=== PATIENT | male | born 1965 | race Caucasian/White ===

== ENCOUNTER 2018-12-26 20:30 | Outpatient (CLI) | payer BC | END 2018-12-26 20:31 | disposition home or self-care (01) | LOC: SLEEPLAB 20:30 | PROVIDERS: ATTEND Family Medicine | DX: G47.33 Obstructive sleep apnea (adult) (pediatric) (principal); R53.83 Other fatigue; K21.9 Gastro-esophageal reflux disease without esophagitis; R06.83 Snoring; R35.1 Nocturia; E11.9 Type 2 diabetes mellitus without complications; G47.00 Insomnia, unspecified; G47.10 Hypersomnia, unspecified; E66.9 Obesity, unspecified; Z68.39 Body mass index [BMI] 39.0-39.9, adult | CPT/HCPCS: 95811 ==

== ENCOUNTER 2020-02-22 12:12 | Observation (INO) | payer BC ==
--- NOTE | 2020-02-22 12:31 | CT ---
Exam: Head CT without contrast HISTORY: Level 1 stroke. Left arm numbness in general facial numbness, onset 20 minutes ago COMPARISON: none FINDINGS: Hemorrhage: No intraparenchymal hemorrhage or extra-axial hematoma. Brain parenchyma: Cortical martinez-white matter differentiation is preserved. No mass effect or midline shift. Basilar cisterns are patent. Ventricular system: Ventricles and sulci are patent and symmetric. Calvarium: Intact. Sinuses and mastoid air cells: Adequate aeration. Additional findings: Fluoroscopy was of the nasopharynx, incompletely evaluated. IMPRESSION: 1. No acute appearing process 2. Nasopharyngeal fullness. Direct visualization is recommended 3. Findings conveyed to Dr. Thorne 02/22/2020 12:28 PM Code CR
[2020-02-22 13:29] LABS: ALT (SGPT) 48 U/L (8-55); AST (SGOT) 35 U/L (5-34); Albumin 4.9 g/dL (3.5-5.0); Alkaline Phosphatase 53 U/L (40-110); Anion Gap 16 mmol/L (10-20); BUN (Urea Nitrogen) 16 mg/dL (8.4-25.7); Bilirubin, Total 0.3 mg/dL (0.2-1.2); Calc. Creatinine Clearance 0 mL/min (70-130); Calcium 10.4 mg/dL (7.8-10.44); Carbon Dioxide 24 mmol/L (22-29); Chloride 102 mmol/L (98-107); Estimated GFR-MDRD 69; Globulin 3.6 g/dL (2.4-3.5); Glucose 155 mg/dL (70-105); Potassium 4.1 mmol/L (3.5-5.1); Protein, Total 8.5 g/dL (6.0-8.3); Sodium 138 mmol/L (136-145)
[2020-02-22 13:35] LABS: #Eosinphils 0.1 thou/uL (0.0-0.7); #Lymphocytes 1.9 thou/uL (1.20-3.40); #Monocytes 0.3 thou/uL (0.11-0.59); #Neutrophils 3.2 thou/uL (1.40-6.50); %Basophils 0.7 % (0.0-1.0); %Eosinophils 0.9 % (0.0-10.0); %Lymphocytes 35.3 % (21.0-51.0); %Monocytes 5.3 % (0.0-10.0); %Neutrophils 57.7 % (42.0-75.0); Hemoglobin 14.9 g/dL (14.0-18.0); Mean Corpuscular HGB CONC 33.9 g/dL (32.0-36.0); Mean Corpuscular Hemoglobin 29.8 pg (27.0-31.0); Mean Corpuscular Volume 87.7 fL (78.0-98.0); Mean Platelet Volume 6.3 fL (7.4-10.4); Platelet Count 345 thou/uL (130-400); RBC Distribution Width 12.6 % (11.5-14.5); Red Blood Cell (RBC) Count 5.01 mill/uL (4.70-6.10); White Blood Cell (WBC) Count 5.5 thou/uL (4.8-10.8)
[2020-02-22 13:41] LABS: INR-International Normal Ratio 0.9; Prothrombin Time 12.4 sec (12.0-14.7)
[2020-02-22 13:46] LABS: PTT 25.6 sec (22.9-36.1)
[2020-02-22] MEDS ORDERED: Acetaminophen 325 MG TAB PO PRN (16:30)
[2020-02-22] MEDS ORDERED: Ondansetron ODT 4 MG TAB SL PRN (16:30)
[2020-02-22] MEDS ORDERED: Ondansetron PF 4 MG/2 ML Vial IVP PRN (16:30)
[2020-02-22] MEDS ORDERED: Dextrose 50% Abboject 50 ML SYRINGE SLOW IVP PRN (16:41)
[2020-02-22] MEDS ORDERED: HumaLOG 300 UNITS/3 ML VIAL SC PRN ×2 (16:41)
[2020-02-22] MEDS ORDERED: Dextrose 5% in Water 1,000 ML IV PRN (16:41)
[2020-02-22 16:42] VITALS: BMI 38.6
--- NOTE | 2020-02-22 16:57 | PDOC.HHP ---
Hospitalist HPI - History of Present Illness Left-sided facial numbness History of Present Illness: PCP: Sujata The patient is a 54-year-old male past medical history significant for hyperlipidemia and diabetes type 2. He presents to the ER today after an episode of having his lips and the left side of his face feel numb. He also states that his left arm felt like it was weight although he was still able to move it. The person he was talking to denies that his face had any droop or change to it. He also denies any change in his speech or swallowing. When this occurred his face became flushed and he was diaphoretic. He had his blood pressure checked at that time and it was 140 systolically which he states is high for him. He took 324 mg of aspirin prior to arrival in the ER. He denied any change in his gait, chest pain, abdominal pain, shortness of breath, changes in bowel or bladder habits, contact with sick persons, headache, associated stress. Patient does state that approximately 2 to 3 weeks ago a coworker noticed a left sided facial droop which quickly resolved so he did not seek medical treatment. Also the patient states that this past weekend he had a moment of confusion where he went into the bathroom to urinate and instead of using the toilet he urinated in the trash can. He denies any new medication use or alcohol use at that time. Patient states he has been compliant with his medications but that his recent A1c's have ranged from 7-10. ED Course: Today in the ER they completed a brain CT, EKG, lab work. No medications were administered in the ER as he had aspirin prior to arrival. In the ER his NIH was a 0. Hospitalist ROS - Review of Systems Neurological: reports: weakness (left arm heaviness), numbness (lips and left side of face) All other systems reviewed; all pertinent +/- noted in HPI/Subj - Medication Medications: NKDA Current Medications: metFORMIN ThuFeb 22, 2020 13:05 ZENA Castañeda, Gay TABLET : Strength - 500 mg : ORAL Patient Dose: Unknown. pantoprazole oral ThuFeb 22, 2020 13:05 ZENA Castañeda, Gay TABLET, DELAYED RELEASE (ENTERIC COATED) : Strength - 40 mg : ORAL Patient Dose: Unknown. fenofibrate ThuFeb 22, 2020 13:06 ZENA Castañeda, Gay tablet : Strength - 40 mg : ORAL Patient Dose: Unknown. Hospitalist History - Past Medical History Source: patient Cardiac: reports: Hyperlipidemia Pulmonary: reports: Other (sleep apnea on CPAP) Gastrointestinal: reports: GERD Endocrine: reports: Diabetes - Past Surgical History Other Surgical History: lithotripsy - Family History Family History: reports: no pertinent history - Social History Smoking Status: Never smoker Alcohol: reports: None Drugs: reports: none Living Situation: With Family Activity level: independent ambulation - Exam General Appearance: NAD, awake alert Eye: PERRL Neck: supple Heart: RRR, no murmur, no gallops, no rubs, normal peripheral pulses Respiratory: CTAB, no wheezes, no rales, no ronchi, normal chest expansion Gastrointestinal: soft, non-tender, non-distended, normal bowel sounds Extremities: no cyanosis, no edema Neurological: cranial nerve grossly intact, normal sensation to touch, no weakness, no focal deficits Musculoskeletal: normal tone, normal strength, no muscle wasting Psychiatric: normal affect, normal behavior, A&O x 3 Hospitalist Results - Labs Result Diagrams: 02/22/20 13:27 02/22/20 12:40 Lab results: WBC 5.5 thou/uL (4.8-10.8) 02/22/20 13:27 Hgb 14.9 g/dL (14.0-18.0) 02/22/20 13:27 Hct 43.9 % (42.0-52.0) 02/22/20 13:27 MCV 87.7 fL (78.0-98.0) 02/22/20 13:27 Plt Count 345 thou/uL (130-400) 02/22/20 13:27 Neutrophils % 57.7 % (42.0-75.0) 02/22/20 13:27 Sodium 138 mmol/L (136-145) 02/22/20 12:40 Potassium 4.1 mmol/L (3.5-5.1) 02/22/20 12:40 Chloride 102 mmol/L (98-107) 02/22/20 12:40 Carbon Dioxide 24 mmol/L (22-29) 02/22/20 12:40 BUN 16 mg/dL (8.4-25.7) 02/22/20 12:40 Creatinine 1.12 mg/dL (0.7-1.3) 02/22/20 12:40 Glucose 155 mg/dL (70-105) H 02/22/20 12:40 Calcium 10.4 mg/dL (7.8-10.44) 02/22/20 12:40 Total Bilirubin 0.3 mg/dL (0.2-1.2) 02/22/20 12:40 AST 35 U/L (5-34) H 02/22/20 12:40 ALT 48 U/L (8-55) 02/22/20 12:40 Alkaline Phosphatase 53 U/L (40-110) 02/22/20 12:40 Troponin I Less than 0.010 ng/mL (< 0.028) 02/22/20 12:40 Serum Total Protein 8.5 g/dL (6.0-8.3) H 02/22/20 12:40 Albumin 4.9 g/dL (3.5-5.0) 02/22/20 12:40 - EKG Interpretation EKG: SR 90 bpm - Radiology Interpretation CT scan - head Status: report reviewed by me Additional Comment: Exam: Head CT without contrast HISTORY: Level 1 stroke. Left arm numbness in general facial numbness, onset 20 minutes ago COMPARISON: none FINDINGS: Hemorrhage: No intraparenchymal hemorrhage or extra-axial hematoma. Brain parenchyma: Cortical martinez-white matter differentiation is preserved. No mass effect or midline shift. Basilar cisterns are patent. Ventricular system: Ventricles and sulci are patent and symmetric. Calvarium: Intact. Sinuses and mastoid air cells: Adequate aeration. Additional findings: Fluoroscopy was of the nasopharynx, incompletely evaluated. IMPRESSION: 1. No acute appearing process 2. Nasopharyngeal fullness. Direct visualization is recommended Hospitalist H&P A/P - Plan Plan: Possible TIA versus CVA Patient to be monitored on our stroke unit Aspirin to be started MRI in the morning Neurology consult Echopatient states last echo was approximately 3 years ago and was "normal" Dysphagia screening prior to eating Diabetes type 2 Monitor Accu-Cheks AC at bedtime Mild sliding scale insulin Hemoglobin A1c in the morning Hyperlipidemia FLP in a.m. Restart home medication Obstructive sleep apnea Nursing to arrange to have either home CPAP brought up to the hospital or have RT arrange the hospital's CPAP with his home settings VTE and GI prophylaxis in place CODE STATUS: Full Surrogate decision maker is his , Eva
[2020-02-22] MEDS: Sodium Chloride 0.9% 1,000 ML IV SCH (17:17)
[2020-02-22 17:29] LABS: Bacteria/HPF None Seen HPF (None Seen); Bilirubin Negative (Negative); Blood, Urine Negative (Negative); Clarity Clear (Clear); Glucose, Urine (Dipstick) Normal (Negative); Ketone, Urine Negative (Negative); Leukocyte Negative Leu/uL (Negative); Nitrite Negative (Negative); Protein, Urine (Dipstick) Negative (Neg-Trace); RBC/HPF 0-3 HPF (0-3); Specific Gravity, Urine 1.021 (1.002-1.036); Squamous Epithelial 0-3 HPF (0-3); Urobilinogen Normal mg/dL (Less than 2); WBC/HPF 0-3 HPF (0-3); pH, Urine 6.5 (5.0-9.0)
[2020-02-22 17:31] LABS: Urine Culture Reflex No No
[2020-02-22] MEDS ORDERED: Fenofibrate 48 MG TAB PO SCH (21:00)
[2020-02-23] MEDS: Sodium Chloride 0.9% 1,000 ML IV SCH (01:14)
[2020-02-23 05:17] LABS: Hemoglobin A1c 7.7 % (4.0-6.0)
[2020-02-23 05:19] LABS: #Eosinphils 0.1 thou/uL (0.0-0.7); #Lymphocytes 2.7 thou/uL (1.20-3.40); #Monocytes 0.4 thou/uL (0.11-0.59); #Neutrophils 3.6 thou/uL (1.40-6.50); %Basophils 0.1 % (0.0-1.0); %Eosinophils 1.8 % (0.0-10.0); %Lymphocytes 39.2 % (21.0-51.0); %Monocytes 6.2 % (0.0-10.0); %Neutrophils 52.7 % (42.0-75.0); Hemoglobin 13.9 g/dL (14.0-18.0); Mean Corpuscular HGB CONC 34.5 g/dL (32.0-36.0); Mean Corpuscular Hemoglobin 30.2 pg (27.0-31.0); Mean Corpuscular Volume 87.7 fL (78.0-98.0); Mean Platelet Volume 6.5 fL (7.4-10.4); Platelet Count 315 thou/uL (130-400); RBC Distribution Width 12.5 % (11.5-14.5); Red Blood Cell (RBC) Count 4.58 mill/uL (4.70-6.10); White Blood Cell (WBC) Count 6.9 thou/uL (4.8-10.8)
[2020-02-23 05:40] LABS: Anion Gap 13 mmol/L (10-20); BUN (Urea Nitrogen) 18 mg/dL (8.4-25.7); Calc. Creatinine Clearance 166 mL/min (70-130); Calcium 9.3 mg/dL (7.8-10.44); Carbon Dioxide 25 mmol/L (22-29); Cardiac Risk 5.9 (Less than 4.5); Chloride 104 mmol/L (98-107); Cholesterol 154 mg/dl (< 200 Desired); Estimated GFR-MDRD 83; Glucose 149 mg/dL (70-105); HDL Cholesterol 26 mg/dL (>60 Neg Risk); LDL Cholesterol, Calculated 62 mg/dL; Potassium 3.8 mmol/L (3.5-5.1); Sodium 138 mmol/L (136-145); Triglycerides 328 mg/dL (Less than 150)
[2020-02-23] MEDS ORDERED: Pantoprazole 40 MG GRANULES PACKET PO SCH (09:00)
[2020-02-23] MEDS ORDERED: Tamsulosin HCl 0.4 MG CAP PO SCH (09:00)
[2020-02-23] MEDS ORDERED: FLU VACC QS2020-21(6MOS UP)/PF 60 MCG/0.5 ML SYRINGE IM ONE (09:00)
[2020-02-23] MEDS ORDERED: Aspirin 81 mg Enteric Coated Tablet PO SCH (09:00)
--- NOTE | 2020-02-23 12:31 | MRI ---
MRI of thebrain: 02/23/2020 COMPARISON:None available HISTORY:TIA versus stroke, left arm weakness TECHNIQUE: Multiplanar multisequence MR imaging of thebrain without contrast Findings:The diffusion weighted imaging demonstrates no evidence for acute infarction. The axial grad ient echo imaging demonstrates no evidence for intracranial hemorrhage. The regional bone marrow signal intensity appears within normal limits on the sagittal T1-weighted imaging. Arterial flow voids at the axial level of the skull base appear grossly unremarkable on the T2-weight ed imaging. The paranasal sinuses and mastoid air cells appear grossly unremarkable. No midline shift or mass effect. No ventricular enlargement. IMPRESSION:No evidence for acute infarction or intracranial hemorrhage.
--- NOTE | 2020-02-23 13:03 | CON ---
NEUROLOGY CONSULTATION DATE OF CONSULTATION: 02/23/2020 REASON FOR CONSULTATION: Left-sided facial paresthesias and facial droop. HISTORY OF PRESENT ILLNESS: Mr. Hamm is a 54-year-old male with medical history significant for hyperlipidemia and diabetes, presented to the emergency room on 02/22/2020 with an episode of left facial paresthesias. His arm also felt heavy and he was unable to move it for some time. The coworkers have also noticed the left facial droop. He decided to come to the emergency room for further evaluation. His symptoms resolved. He also had an episode of left facial droop approximately 2 to 3 weeks ago noticed by a coworker, which resolved on its own and he did not seek medical help. The symptoms persisted this time and his face was flushed and he was diaphoretic, so he decided to come to the emergency room for further evaluation. In the emergency room, he was given aspirin and CT scan was done, which was negative for acute intracranial pathology. EKG showed normal sinus rhythm. In the emergency room, his NIH score was zero. The patient also recalls he had an episode past weekend of confusion when he instead of going to the restroom, he urinated in a trash can. The patient at this time denies any focal numbness, focal paresthesias, nausea, vomiting, headache, chest pain, abdominal pain, problems with speech or swallowing, blurred vision, dizziness, vertigo, or loss of vision or loss of consciousness or involuntary abnormal movements associated with the episode. REVIEW OF SYSTEMS: All 14 systems were reviewed and were negative except the pertinent positives and negatives mentioned in the HPI. ALLERGIES: NO KNOWN DRUG ALLERGIES. CURRENT MEDICATIONS: 1. Metformin 500 mg twice daily. 2. Fenofibrate 40 mg daily. PAST MEDICAL HISTORY: Hyperlipidemia; sleep apnea, on CPAP; gastroesophageal reflux disease; diabetes. PAST SURGICAL HISTORY: Lithotripsy. FAMILY HISTORY: No family history of stroke. SOCIAL HISTORY: The patient lives with family and denies smoking, alcohol, or illegal drug use. PHYSICAL EXAMINATION: VITAL SIGNS: Blood pressure 140/80 pulse 80, respiratory rate 18. General Appearance: NAD, awake alert Eye: PERRL Neck: supple Heart: RRR, no murmur, no gallops, no rubs, normal peripheral pulses Respiratory: CTAB, no wheezes, no rales, no ronchi, normal chest expansion Gastrointestinal: soft, non-tender, non-distended, normal bowel sounds Extremities: no cyanosis, no edema Neurological: Mental status, the patient is alert and oriented to person, place, and time. Recent and remote memory, intact. Speech is clear. Fund of knowledge is appropriate. Motor, muscle tone and bulk are normal. Strength 5/5 bilaterally. Sensory intact. Cerebellar, finger-nose testing intact. Cranial nerves 2 through 12 intact. Gait deferred due to the patient's safety reason. DATA REVIEWED: I reviewed the labs, which was essentially unremarkable except hyperglycemia of 155. EKG shows normal sinus rhythm and a CT scan of the head reviewed, which did not reveal any acute intracranial pathology. Lab results: WBC 5.5 thou/uL (4.8-10.8) 02/22/20 13:27 Hgb 14.9 g/dL (14.0-18.0) 02/22/20 13:27 Hct 43.9 % (42.0-52.0) 02/22/20 13:27 MCV 87.7 fL (78.0-98.0) 02/22/20 13:27 Plt Count 345 thou/uL (130-400) 02/22/20 13:27 Neutrophils % 57.7 % (42.0-75.0) 02/22/20 13:27 Sodium 138 mmol/L (136-145) 02/22/20 12:40 Potassium 4.1 mmol/L (3.5-5.1) 02/22/20 12:40 Chloride 102 mmol/L (98-107) 02/22/20 12:40 Carbon Dioxide 24 mmol/L (22-29) 02/22/20 12:40 BUN 16 mg/dL (8.4-25.7) 02/22/20 12:40 Creatinine 1.12 mg/dL (0.7-1.3) 02/22/20 12:40 Glucose 155 mg/dL (70-105) H 02/22/20 12:40 Calcium 10.4 mg/dL (7.8-10.44) 02/22/20 12:40 Total Bilirubin 0.3 mg/dL (0.2-1.2) 02/22/20 12:40 AST 35 U/L (5-34) H 02/22/20 12:40 ALT 48 U/L (8-55) 02/22/20 12:40 Alkaline Phosphatase 53 U/L (40-110) 02/22/20 12:40 Troponin I Less than 0.010 ng/mL (< 0.028) 02/22/20 12:40 Serum Total Protein 8.5 g/dL (6.0-8.3) H 02/22/20 12:40 Albumin 4.9 g/dL (3.5-5.0) 02/22/20 12:40 - EKG Interpretation EKG: SR 90 bpm - Radiology Interpretation CT scan - head Status: report reviewed by me Additional Comment: Exam: Head CT without contrast HISTORY: Level 1 stroke. Left arm numbness in general facial numbness, onset 20 minutes ago COMPARISON: none FINDINGS: Hemorrhage: No intraparenchymal hemorrhage or extra-axial hematoma. Brain parenchyma: Cortical martinez-white matter differentiation is preserved. No mass effect or midline shift. Basilar cisterns are patent. Ventricular system: Ventricles and sulci are patent and symmetric. Calvarium: Intact. Sinuses and mastoid air cells: Adequate aeration. Additional findings: Fluoroscopy was of the nasopharynx, incompletely evaluated. IMPRESSION: 1. No acute appearing process 2. Nasopharyngeal fullness. Direct visualization is recommended ASSESSMENT AND PLAN: Mr. Carlos Eduardo Hamm is a 54-year-old male, who was admitted for an episode of left facial paresthesias and left arm heaviness, which resolved on its own in 20 minutes, most likely transient ischemic attack and consider MRI of the brain to rule out acute intracranial process. He also needs 2D echocardiogram to evaluate for left ventricular ejection fraction, carotid Dopplers, and telemetry to rule out arrhythmias. Permissive control of blood pressure at this time. Strict control of blood glucose. Check hemoglobin A1c, fasting lipid panel, and TSH. Neuro checks every 4 hours. Continue home medications. EEG to evaluate for an episode of confusion, which happened past weekend. PT/OT/Speech. Continue medical management per primary team. Start aspirin and high-intensity statin for secondary stroke prevention. We will continue to follow. Thank you for the consult. Job ID: [id number] MTDD
--- NOTE | 2020-02-23 13:47 | PDOC.EEG ---
Neurology EEG Report - Report Report: This EEG was performed using 24 channel [employer] video digital EEG machine with 24 disc electrodes. This was an extended 2-hour 4 minutes of inpatient video EEG recording. Initial analysis of the EEG was done for Hardik and seizure detection which revealed no abnormalities. Background: The posterior background rhythm was 8.5 to 9 Hz. The background rhythm attenuates with eye opening and enhances with eye closure. Hyperventilation: Not performed Photic stimulation: Bioccipital symmetric driving response is observed. Sleep: Drowsiness and sleep are observed EEG diagnosis: Normal awake, drowsy and sleep EEG.
--- NOTE | 2020-02-23 14:04 | ULT ---
CAROTID DOPPLER: 02/23/20 Ultrasound Doppler study is performed of the extracranial carotid arteries. Color Doppler with spectr al analysis and velocity recordings obtained. INDICATIONS: TIA. FINDINGS: Ultrasound images show no significant echogenic plaque or intimal thickening. Velocity recordings are normal bilaterally. Vertebral arteries are antegrade. IMPRESSION: 1. No significant echogenic plaque by ultrasound. 2. No evidence of stenosis identified by Doppler velocity. POS: AGW
[2020-02-23 15:18] VITALS: BP 129/84; TEMP 97.5
--- NOTE | 2020-02-23 19:56 | DIS ---
DATE OF ADMISSION: 02/22/2020 DATE OF DISCHARGE: 02/23/2020 DISCHARGE DISPOSITION AND FOLLOWUP: The patient discharged home with . The patient was seen and examined on the day of discharge. Denies any new complaints. INPATIENT CONSULT: Neurology. BRIEF CLINICAL COURSE: The patient is a 54-year-old male with past medical history significant for hyperlipidemia and diabetes type 2. He presented to the ER after an episode of his lips and left side of his face feeling numb. He also felt that his arm was "deadweight". His symptoms resolved while he was on the CT scan table in the ER. While he was in the hospital he completed a brain CT, which showed no acute appearing process. He also had a brain MRI, which showed no evidence for acute infarction or intracranial hemorrhage. Carotid Doppler study, which showed no significant echogenic plaque or stenosis. He also had an EEG, which was resulted as normal per Neurology. Neurology saw the patient and recommended an echo. However, the patient refused COVID swab, so was not able to have the echo completed in the hospital. He was asked to obtain one outpatient and follow up with his physician. Neurology also recommended the patient be placed on a statin and aspirin. FINAL DIAGNOSES: transient ischemic attack, diabetes type 2, hyperlipidemia. DISCHARGE MEDICATIONS: The patient was discharged on his home medications and had aspirin 81 mg added along with atorvastatin 10 mg. Due to the patient being on fenofibrate already prior to admission, we were not able to put him on a high- dose statin. DISCHARGE INSTRUCTIONS: The patient is to follow up with his physician this upcoming week and has an appointment set up with Dr. Ernst already on Thursday for followup from the hospital. At that time the dual therapy with his cholesterol medications can be discussed and it can be assessed how he is feeling being on both. He is also to follow up with Neurology outpatient and Dr. Brady's information has been given to him. TIME SPENT: Total time coordinating the discharge of this patient was 25 minutes. Patient was reviewed and discussed with Dr. Hahn and Dr. Ugarte prior to discharge. Job ID: [id number] [facility]
== END 2020-02-23 17:30 | disposition home or self-care (01) ==
LOC: ERS 12:12 → 2SE 14:51
PROVIDERS: ADMIT Emergency Medicine; ATTEND Emergency Medicine
DX: G45.9 Transient cerebral ischemic attack, unspecified (principal); E11.9 Type 2 diabetes mellitus without complications; E78.5 Hyperlipidemia, unspecified; G47.33 Obstructive sleep apnea (adult) (pediatric); K21.9 Gastro-esophageal reflux disease without esophagitis; Z79.84 Long term (current) use of oral hypoglycemic drugs; Z79.899 Other long term (current) drug therapy
CPT/HCPCS: 36415; 36416; 70450; 70551; 80048; 80053; 80061; 81001; 83036; 84443; 84484; 85025; 85610; 85730; 93005; 93880; 95712; 95819; 95957; G0378

== ENCOUNTER 2024-05-06 15:02 | Outpatient (CLI) | payer BC ==
[2024-05-06 16:09] LABS: #Basophils 0.03 10x3/uL (0.0-0.2); %Basophils 0.4 % (0.0-1.0); %Eosinophils 3.4 % (0.0-10.0); %Lymphocytes 36.4 % (21.0-51.0); %Monocytes 5.7 % (0.0-10.0); %Neutrophils 53.8 % (42.0-75.0); Hematocrit 42.8 % (42.0-52.0); Hemoglobin 15.1 g/dL (14.0-18.0); Mean Corpuscular HGB CONC 35.3 g/dL (32.0-36.0); Mean Corpuscular Hemoglobin 30.3 pg (27.0-31.0); Mean Corpuscular Volume 85.9 fL (78.0-98.0); Mean Platelet Volume 8.8 fL (7.4-10.4); Platelet Count 270 10x3/uL (130-400); RBC Distribution Width 12.5 % (11.5-14.5); Red Blood Cell (RBC) Count 4.98 mill/uL (4.70-6.10)
[2024-05-06 16:16] LABS: Squamous Epithelial 0-3 HPF (0-3); WBC/HPF Greater than 50 HPF (0-3)
[2024-05-06 16:17] LABS: Bacteria/HPF 1+ HPF (None Seen)
[2024-05-06 16:18] LABS: Bilirubin Negative (Negative); Blood, Urine Trace (Negative); Clarity Hazy (Clear); Glucose, Urine (Dipstick) Negative (Negative); Ketone, Urine Negative (Negative); Leukocyte Small (Negative); Nitrite Negative (Negative); Protein, Urine (Dipstick) 100 mg/dL (Neg-Trace); Urobilinogen 0.2 mg/dL (Less than 2)
[2024-05-06 16:19] LABS: Specific Gravity, Urine 1.025 (1.002-1.036)
[2024-05-06 16:22] LABS: INR-International Normal Ratio 0.9; PTT 25.8 sec (22.9-36.1); Prothrombin Time 12.1 sec (12.0-14.7)
[2024-05-06 16:25] LABS: Anion Gap 13 mmol/L (10-20); BUN (Urea Nitrogen) 15 mg/dL (8.4-25.7); Calc. Creatinine Clearance 0 mL/min (70-130); Calcium 10.2 mg/dL (7.8-10.44); Carbon Dioxide 25 mmol/L (22-29); Chloride 100 mmol/L (98-107); Estimated GFR 105; Glucose 164 mg/dL (70-105); Potassium 3.9 mmol/L (3.5-5.1); Sodium 134 mmol/L (136-145)
== END 2024-05-06 15:03 | disposition home or self-care (01) ==
LOC: LABBT 15:02
PROVIDERS: ATTEND Urology
DX: Z01.818 Encounter for other preprocedural examination (principal); N20.0 Calculus of kidney; E27.8 Other specified disorders of adrenal gland; E11.9 Type 2 diabetes mellitus without complications; G47.33 Obstructive sleep apnea (adult) (pediatric); G45.9 Transient cerebral ischemic attack, unspecified
CPT/HCPCS: 80048; 81001; 85025; 85610; 85730; 87086; 93005; 93010

== ENCOUNTER 2024-05-19 07:51 | Day surgery (SDC) | payer BC ==
[2024-05-06 15:25] VITALS: BMI 37.2
[2024-05-19] MEDS ORDERED: PROPOFOL 20 ML ONE (08:49)
[2024-05-19] MEDS ORDERED: fentaNYL PF 100 MCG/2 ML SYRINGE ONE ×2 (08:49→09:45)
[2024-05-19] MEDS ORDERED: Lidocaine 1% PF 5 ML VIAL ONE (08:49)
[2024-05-19] MEDS ORDERED: Midazolam HCl 2 mg/2 ml Vial ONE (09:20)
[2024-05-19] MEDS ORDERED: LevoFLOXacin D5W 500 mg (100 mL) BAG ONE (09:20)
[2024-05-19] MEDS ORDERED: PHENYLEPHRINE-NS 100 MCG/ML 10 ML SYRINGE ONE (10:11)
[2024-05-19] MEDS ORDERED: Dexamethasone 20 MG/5 ML VIAL ONE (10:28)
[2024-05-19] MEDS ORDERED: Ondansetron PF 4 MG/2 ML Vial ONE ×2 (10:28→11:34)
[2024-05-19] MEDS ORDERED: Promethazine HCl 25 MG/ML VIAL ONE (11:52)
== END 2024-05-19 15:15 | disposition home or self-care (01) ==
LOC: SDC 07:51
PROVIDERS: ATTEND Urology
PROC: 0TCB8ZZ Extirpation of Matter from Bladder, Via Natural or Artificial Opening Endoscopic (ICD-10-PCS; principal; 2024-05-19)
PROC: 0T778DZ Dilation of Left Ureter with Intraluminal Device, Via Natural or Artificial Opening Endoscopic (ICD-10-PCS; principal; 2024-05-19)
PROC: 0TB78ZZ Excision of Left Ureter, Via Natural or Artificial Opening Endoscopic (ICD-10-PCS; principal; 2024-05-19)
DX: N20.1 Calculus of ureter (principal); N28.86 Ureteritis cystica; I10 Essential (primary) hypertension; E11.9 Type 2 diabetes mellitus without complications; E78.5 Hyperlipidemia, unspecified; K21.9 Gastro-esophageal reflux disease without esophagitis
CPT/HCPCS: 74420; 82365; 88300; 88305; C1769; C2617; J1100; J1956; J2250; J2405; J2550; J2704